=== PATIENT | male | born 1930 | race Caucasian/White ===

== ENCOUNTER 2020-01-19 09:31 | Day surgery (SDC) | payer MEDICARE, BC ==
[~2020-01-19] VITALS: Ht 172.7 cm; Wt 66.6 kg
[2020-01-19] MEDS ORDERED: sodium bicarbonate (8.4%) inj. 150 ML in dextrose 5%-water 1,000 ML IV ONE (09:55)
[2020-01-19 10:30] VITALS: BP 127/55
[2020-01-19] MEDS ORDERED: ALLO300T8 PO (10:51)
[2020-01-19] MEDS ORDERED: APIX2.5T PO (10:51)
[2020-01-19] MEDS ORDERED: POTA8CAP20 PO (10:51)
[2020-01-19] MEDS ORDERED: FURO20TA4 PO (10:51)
[2020-01-19] MEDS ORDERED: FINA5TAB11 PO (10:51)
[2020-01-19] MEDS ORDERED: PRAV20TA4 PO (10:51)
[2020-01-19] MEDS ORDERED: iohexol 350MG/ML 100ml bottle IV ONE (12:48)
== END 2020-01-19 17:00 | disposition home or self-care (01) ==
LOC: SSTAY O 09:31 → EDSTATUS 10:00 → SSTAY O 17:00
PROVIDERS: ATTEND Internal Medicine Cardiovascular Disease
DX: I65.23 Occlusion and stenosis of bilateral carotid arteries (principal); I25.10 Atherosclerotic heart disease of native coronary artery without angina pectoris; I77.1 Stricture of artery
CPT/HCPCS: 70498; 96360; 96361; Q9967